=== PATIENT | female | born 2000 | race Caucasian/White ===

== ENCOUNTER 2019-11-30 01:03 | Emergency (ER) | payer OTHER, SELFPAY ==
[2019-11-30 01:10] VITALS: BP 129/61; PULSE 98; RESP 16; TEMP 36.5; O2SAT 100
--- NOTE | 2019-11-30 02:13 | ED.EAR ---
HPI - Ear Problem General Chief complaint: Ear Stated complaint: ear infection Time Seen by Provider: 11/30/19 01:29 History of Present Illness HPI Narrative: Patient is a 19-year-old female who presents the ER with right ear pain. Began earlier in the day but much worse this evening. No change in hearing. Radiates into her jaw. Has not been in any swimming pools. No known sick contacts. Denies any runny nose/sore throat/productive cough. Does not believe anything stuck in her ear. Related Data Allergies Allergy/AdvReac Type Severity Reaction Status Date / Time No Known Allergies Allergy Unverified 11/30/19 01:04 Review of Systems Constitutional: Constitutional: Denies chills and Denies fever(s) ENT: Denies nasal congestion and Denies sore throat Comments: Right ear pain Respiratory: Respiratory: Denies cough and Denies dyspnea PMFSH Past Medical History Medical History (Updated 11/30/19 @ 02:15 by Ulysses Sellers MD) Asthma Eczema Tonsillitis Surgical History Surgical History (Updated 04/27/19 @ 02:46 by Anita Nicholas) Hx of tonsillectomy Social History Social History (Updated 04/27/19 @ 02:46 by Anita Nicholas) Tobacco type: cigarettes Exam Narrative: Exam Narrative: GENERAL: Well-appearing, well-nourished, and in no acute distress. HEAD: Normocephalic, atraumatic. ENT: Mucous membranes moist. Tympanic membrane on the right side is bulging and erythematous. Ear canal normal appearance. Normal left ear exam. NEURO: Alert and oriented x3. PSYCH: Normal mood and affect. Course Course Emergency Course: Patient is . Can receive Augmentin. Discharge home. Vital Signs Vital signs: Vital Signs Temperature 97.7 F 11/30/19 01:10 Pulse Rate 98 11/30/19 01:10 Respiratory Rate 16 11/30/19 01:10 Blood Pressure 129/61 11/30/19 01:10 Pulse Oximetry 100 11/30/19 01:10 Temperature 97.7 F 11/30/19 01:10 Pulse Rate 98 11/30/19 01:10 Respiratory Rate 16 11/30/19 01:10 Blood Pressure 129/61 11/30/19 01:10 Pulse Oximetry 100 11/30/19 01:10 Medical Decision Making Vital Signs Vital Signs: Vital Signs Temperature 97.7 F 11/30/19 01:10 Pulse Rate 98 11/30/19 01:10 Respiratory Rate 16 11/30/19 01:10 Blood Pressure 129/61 11/30/19 01:10 Pulse Oximetry 100 11/30/19 01:10 Temperature 97.7 F 11/30/19 01:10 Pulse Rate 98 11/30/19 01:10 Respiratory Rate 16 11/30/19 01:10 Blood Pressure 129/61 11/30/19 01:10 Pulse Oximetry 100 11/30/19 01:10 Discharge Plan Discharge Clinical Impression: Otitis media Patient Disposition: Home, Self-Care Condition: Stable Instructions: Antibiotic Form, Ear Infection (ED) Prescriptions: New amoxicillin-pot clavulanate [Augmentin] 875-125 mg tablet 1 tablet PO Q12H Qty: 20 RF: 0 hydrocodone-acetaminophen 5-325 mg tablet 1 tablet PO Q6H PRN (Reason: pain) Qty: 20 RF: 0 Follow-up/Referrals: Alex,EFFIE Alberto [Primary Care Provider] - 1 Week
[2019-11-30 02:25] VITALS: BP 125/68; PULSE 85; RESP 16; O2SAT 100
== END 2019-11-30 02:25 | disposition home or self-care (01) ==
PROVIDERS: Emergency Provider Emergency Medicine; PCP Nurse Practitioner Family
DX: O99.89 Other specified diseases and conditions complicating pregnancy, childbirth and the puerperium (principal); H66.91 Otitis media, unspecified, right ear; O99.511 Diseases of the respiratory system complicating pregnancy, first trimester; J45.909 Unspecified asthma, uncomplicated; O99.331 Smoking (tobacco) complicating pregnancy, first trimester; F17.210 Nicotine dependence, cigarettes, uncomplicated; Z3A.01 Less than 8 weeks gestation of pregnancy
CPT/HCPCS: 99283

== ENCOUNTER 2020-02-25 14:05 | Outpatient (CLI) | payer OTHER, SELFPAY ==
--- NOTE | ~2020-02-25 | US_ITS ---
US OB /maternal detail DATE: 02/25/2020 14:50 INDICATION: anatomy assessment. Routine anterior needle care. TECHNIQUE: Real-time imaging and Doppler analysis COMPARISON: None FINDINGS: Live millard intrauterine gestation, the fetus in breech presentation, longitudinal lie. heart rate of 174 bpm. No cerebral ventriculomegaly. The cerebellum appears normal. Normal nuchal fold. Normal c isterna magna. The spine appears unremarkable on transverse and longitudinal views. The diaphragm is int act. 4 chamber heart. The kidneys are unremarkable. No hydronephrosis. Three-vessel umbilical cord with normal insertion at abdominal wall. Fluid is demonstrated in the sto mach and urinary bladder. female external genitalia. Three-vessel umbilical cord with normal appearing insertion at abdominal wall. Biparietal diameter 4.50 cm; 19 weeks 4 days Head circumference 16.52 cm; 19 weeks 2 days Abdominal circumference 13.28 cm; 18 weeks 5 days Femur length 2.71 cm; 19 weeks 2 days Composite age by Hadlock formula is 19 weeks +/- 1 week 2 days; [place] by ultrasound is 07/21/2020 compar ed to 07/20/2020 by LMP Estimated weight is 249.7 +/- 37 g. HC/AC 1.24, within normal range 1.09-1.26 Femur length/head circumference 16.39, within normal range of 16.10-18.30 Normal amount of amniotic fluid. Posterior placenta. IMPRESSION: Normal anatomy screen Estimated gestational age is 19 weeks +/- 1 week 2 days; ELHAM by ultrasound is 07/21/2020 Reviewed, dictated and finalized at [facility] Reviewed, dictated and finalized at [facility].
== END 2020-02-25 14:06 | disposition home or self-care (01) ==
LOC: ANHIMG 14:07
PROVIDERS: PCP Nurse Practitioner Family; Visit Provider Obstetrics & Gynecology
DX: Z34.02 Encounter for supervision of normal first pregnancy, second trimester (principal); Z3A.19 19 weeks gestation of pregnancy
CPT/HCPCS: 76805

== ENCOUNTER 2020-03-04 10:04 | Outpatient (CLI) | payer OTHER, SELFPAY ==
[2020-03-04 10:35] LABS: Hemoglobin 11.8 g/dL (12.0-15.0); Mean Corpuscular HGB Conc 32.8 g/dl (32-36); Mean Corpuscular Hemoglobin 25.2 pg (26-34); Mean Corpuscular Volume 76.9 fl (80-100); Mean Platelet Volume 9.9 fl (7.4-10.4); Platelet Count Result 396 k/mm3 (150-375); Red Blood Count 4.68 M/mm3 (4.2-5.4); Red Cell Distribution Width 17.7 % (11.5-14.5); White Blood Count 13.1 K/mm3 (4.5-10.0)
[2020-03-04 11:26] LABS: HIV 1/2 Ab P24 Ag Result Negative (Negative)
[2020-03-04 11:43] LABS: Hepatitis B Surface Antigen Negative (Negative)
[2020-03-06 07:20] LABS: Rapid Plasma Reagin Non-Reactive (NonReactive)
[2020-03-07 16:21] LABS: CMV IgG Antibody <0.60 U/mL (<0.60)
[2020-03-09 16:08] LABS: Rubeola Measles IgG >300.00 AU/mL (>16.49)
== END 2020-03-04 10:05 | disposition home or self-care (01) ==
LOC: ANHLAB 10:07
PROVIDERS: PCP Nurse Practitioner Family; Visit Provider Obstetrics & Gynecology
DX: N92.5 Other specified irregular menstruation (principal)
CPT/HCPCS: 36415; 84702; 85027; 86592; 86644; 86703; 86747; 86765; 86787; 86900; 86901; 87077; 87086; 87088; 87186; 87340; G0432

== ENCOUNTER 2020-03-27 17:46 | Observation (INO) | payer OTHER, SELFPAY ==
[2020-03-27 18:20] VITALS: TEMP 36.5
[2020-03-27 18:24] VITALS: BP 112/52; PULSE 95
[2020-03-27 18:31] VITALS: BP 122/70; PULSE 95
[2020-03-27 18:46] VITALS: BP 110/98; PULSE 88
[2020-03-27 18:56] VITALS: BMI 43.5
--- NOTE | 2020-03-27 18:58 | OBADM ---
This patient, Juhi Gaston, admitted to the OB room OB Post 116 for observation. Patient/family oriented to hospital policies and general routines including ID bracelet, bed and alarms, visiting hours, pain management, procedures, bathroom and other care routines, personal items, smoking policy, room service/diet, and visiting hours. Patient/Family are encouraged to report perceived risks to care and to ask questions if they do not understand what they are told or what they should do.
[2020-03-27 19:01] VITALS: BP 110/65; PULSE 91
[2020-03-27 20:05] LABS: Add Urine Microscopic? YES; Appearance Urine Cloudy (Clear); Bilirubin Urine Negative (Negative); Blood Urine 2+ (Negative); Color Urine Yellow (Yellow); Glucose Urine UA Negative (Negative); Ketones Urine Negative (Negative); Leukocyte Esterase Ur Negative LEU/UL (NEGATIVE); Nitrate Urine Negative (Negative); Protein Urine Negative (Negative); Specific Grav Ur 1.014 (1.001-1.035); Urobilinogen Urine Negative mg/dL (<2.0)
--- NOTE | 2020-03-30 16:28 | P.PNOB_ITS ---
OB - Triage/Final Diagnosis Evaluation Laboratory results: Laboratory Tests 03/27/20 18:33 Urine Color Yellow Urine Appearance Cloudy H Urine pH 7.0 Ur Specific [place] 1.014 Urine Protein Negative Urine Glucose (UA) Negative Urine Ketones Negative Ur Blood (Man) 2+ H Urine Nitrate Negative Urine Bilirubin Negative Urine Urobilinogen Negative Ur Leukocyte Esterase Negative Final Diagnosis (1) Nausea and vomiting during : Code(s): O21.9 - Vomiting of , unspecified Status: Acute
== END 2020-03-27 19:40 | disposition home or self-care (01) ==
PROVIDERS: Admitting Provider Obstetrics & Gynecology; PCP Nurse Practitioner Family; Visit Provider Obstetrics & Gynecology
DX: O21.2 Late vomiting of pregnancy (principal); Z3A.23 23 weeks gestation of pregnancy; Z79.899 Other long term (current) drug therapy
CPT/HCPCS: 81001; 87086; G0378; G0379

== ENCOUNTER 2020-07-06 15:02 | Outpatient (CLI) | payer OTHER, SELFPAY ==
[2020-07-06 15:43] VITALS: BP 130/77; PULSE 100
--- NOTE | 2020-07-06 16:23 | PC.NURSE ---
Pt came in for leaking fluid, rom plus negative gave order to discharge pt home
--- NOTE | 2020-07-07 09:27 | PM.OBTRLD ---
OB - Triage/Final Diagnosis Evaluation Vital signs: Vital Signs - 24 hr 07/06/20 15:43 Pulse Rate 100 Blood Pressure [Left Arm] 130/77 Final Diagnosis (1) False labor: Code(s): O47.9 - False labor, unspecified Status: Acute
== END 2020-07-06 16:00 | disposition home or self-care (01) ==
LOC: ANHOBOP 16:03
PROVIDERS: PCP Nurse Practitioner Family; Visit Provider Obstetrics & Gynecology
DX: O42.90 Premature rupture of membranes, unspecified as to length of time between rupture and onset of labor, unspecified weeks of gestation (principal); Z3A.00 Weeks of gestation of pregnancy not specified
CPT/HCPCS: 59025; 84112

== ENCOUNTER 2020-07-14 | Inpatient (IN) | payer OTHER, SELFPAY ==
[2020-07-14] VITALS (153 sets, daily range): BP systolic 79–154; BP diastolic 40–132; PULSE 74–176; RESP 15–20; TEMP 36.2–36.9; O2SAT 93–100; BMI 46.9
--- NOTE | 2020-07-14 | LDADM ---
This patient, Juhi Gaston, was admitted to Labor/Delivery/Recovery 109 on 07/14/20 at 00:00. Plans for labor, pain management and were discussed with patient. Patient/family oriented to hospital policies and general routines including ID bracelet, bed and alarms, visiting hours, pain management, procedures, bathroom and other care routines, personal items, smoking policy, room service/diet and guest tray routines, infant security routines, and visiting hours. Patient/Family are encouraged to report perceived risks to care and to ask questions if they do not understand what they are told or what they should do. See OBIX for further documentation.
[2020-07-14 00:38] LABS: Basophils Percent Auto 0.2 % (0.2-1.2); Eosinophils Absolute Auto 0.3 K/mm3 (0-0.3); Eosinophils Percent Auto 2.4 % (0-4.4); Hematocrit 34.7 % (37.0-47.0); Hemoglobin 11.4 g/dL (12.0-15.0); Immature Granulocyte Absolute 0.06 K/mm3 (0.00-0.031); Immature Granulocyte Percent A 0.4 % (0-0.5); Lymphocytes Absolute Auto 2.97 K/mm3 (0.9-3.2); Lymphocytes Percent Auto 21.3 % (18.3-44.2); Mean Corpuscular HGB Conc 32.9 g/dl (32-36); Mean Corpuscular Hemoglobin 26.3 pg (26-34); Mean Corpuscular Volume 80.1 fl (80-100); Mean Platelet Volume 10.4 fl (7.4-10.4); Monocytes Absolute Auto 0.7 K/mm3 (0.1-0.6); Monocytes Percent Auto 5.2 % (2.6-8.5); Neutrophils Absolute Auto 9.8 K/mm3 (1.3-6.7); Neutrophils Percent Auto 70.5 % (45.5-73.1); Platelet Count Result 348 k/mm3 (150-375); Red Blood Count 4.33 M/mm3 (4.2-5.4); Red Cell Distribution Width 17.6 % (11.5-14.5)
[2020-07-14] MEDS: LACTATED RINGERS 1,000 ML 125 ML IV CONT ×2 (00:47→09:19)
[2020-07-14] MEDS: OXYTOCIN 30 UNITS/NS 500 ML 30 UNITS/500 ML BAG IV CONT (00:48)
[2020-07-14 01:59] LABS: HIV 1/2 Ab P24 Ag Result Negative (Negative)
--- NOTE | 2020-07-14 07:37 | WPDANESEPP ---
Anes - Eval Pre Procedure Procedure: labor pain Date/Time: 07/14/20 07:37 Preop Diagnosis: labor pain Pre Op Diagnosis: IOL Patient Data Age: 20 Gender: F Height: 5 ft 1 in Weight: 112.7 kg Last Vital Signs Temp 36.2 C L 07/14/20 07:07 Pulse 101 H 07/14/20 07:31 Resp 18 07/14/20 04:09 BP 118/79 07/14/20 07:31 Allergies Allergy/AdvReac Type Severity Reaction Status Date / Time No Known Allergies Allergy Unverified 11/30/19 01:04 Home Medications Medication Instructions Recorded Confirmed Type PNV cmb#95-ferrous fumarate-FA 1 tablet PO DAILY 03/27/20 07/14/20 History [] buspirone 10 mg PO BID 03/27/20 07/14/20 History sertraline [Zoloft] 50 mg PO DAILY 07/13/20 07/14/20 History Laboratory Tests 07/14/20 07/14/20 07/14/20 00:29 00:29 00:29 WBC 14.0 K/mm3 H K/mm3 (4.5-10.0) RBC 4.33 M/mm3 M/mm3 (4.2-5.4) Hgb 11.4 g/dL L g/dL (12.0-15.0) Hct 34.7 % L % (37.0-47.0) MCV 80.1 fl fl (80-100) MCH 26.3 pg pg (26-34) MCHC 32.9 g/dl g/dl (32-36) RDW 17.6 % H % (11.5-14.5) Plt Count 348 k/mm3 k/mm3 (150-375) MPV 10.4 fl fl (7.4-10.4) Immature Gran % (Auto) 0.4 % % (0-0.5) Neut % (Auto) 70.5 % % (45.5-73.1) Lymph % (Auto) 21.3 % % (18.3-44.2) [place] % (Auto) 5.2 % % (2.6-8.5) Eos % (Auto) 2.4 % % (0-4.4) Baso % (Auto) 0.2 % % (0.2-1.2) Lymph # (Auto) 2.97 K/mm3 K/mm3 (0.9-3.2) [place] # (Auto) 0.7 K/mm3 H K/mm3 (0.1-0.6) Eos # (Auto) 0.3 K/mm3 K/mm3 (0-0.3) Baso # (Auto) 0.0 K/mm3 K/mm3 (0.0-0.1) Abs Immat Gran (auto) 0.06 K/mm3 H K/mm3 (0.00-0.031) Absolute Neuts (auto) 9.8 K/mm3 H K/mm3 (1.3-6.7) Absolute Nucleated RBC 0.0 K/mm3 K/mm3 (0.0-0.012) Nucleated RBC % 0.0 % % (0.0-0.2) RPR Pending HIV 1&2 Ab/P24 Ag 4thGn Negative (Negative) Blood Type Antibody Screen 07/14/20 00:29 WBC RBC Hgb Hct MCV MCH MCHC RDW Plt Count MPV Immature Gran % (Auto) Neut % (Auto) Lymph % (Auto) [place] % (Auto) Eos % (Auto) Baso % (Auto) Lymph # (Auto) [place] # (Auto) Eos # (Auto) Baso # (Auto) Abs Immat Gran (auto) Absolute Neuts (auto) Absolute Nucleated RBC Nucleated RBC % RPR HIV 1&2 Ab/P24 Ag 4thGn Blood Type A Positive Antibody Screen Negative Patient hx anesthesia problems: none Family hx anesthesia problems: none [facility] Past Medical History Medical History (Updated 07/07/20 @ 09:28 by Nicolette Shoemaker DO) Asthma Eczema Tonsillitis Surgical History Surgical History (Updated 04/27/19 @ 02:46 by Anita Nicholas) Hx of tonsillectomy Family History Family History Other No pertinent past medical history Social History Social History (Updated 04/27/19 @ 02:46 by Anita Nicholas) Smoking status: Never smoker Tobacco type: cigarettes Substance use: never Gender identity (if verbalized by the patient): Female Spiritual care concerns: No Exam Day of Procedure 07/14/20 07:37
[2020-07-14] MEDS: busPIRone HCL 10 MG TABLET PO (08:38)
[2020-07-14] MEDS: SERTRALINE HCL 50 MG TABLET PO (08:38)
[2020-07-14 14:27] LABS: Rapid Plasma Reagin Non-Reactive (NonReactive)
[2020-07-14] MEDS: ONDANSETRON INJ 4 MG/2 ML VIAL IV PUSH (14:54)
--- NOTE | 2020-07-14 17:12 | WPDOBADMIT ---
Obstetrics - Admit Note Admission Note: record reviewed. No pertinent additions to the history and/or any subsequent changes in the physical findings that are not consistent with the expected course of the were found. Additions to the history and/or subsequent changes in the physical findings follow. None.
--- NOTE | 2020-07-14 17:13 | WPDHPUPDATE1 ---
History and Physical Update Update Date/Time: 07/14/20 17:13 History and Physical has been reviewed, including an updated exam of the patient. There are NO changes in the patient's condition. Risks, benefits, and alternatives have been discussed and questions answered. Patient agrees to proceed with procedure.
--- NOTE | 2020-07-14 17:13 | PM.OBPRVD ---
OB - Delivery Note Procedure Route of delivery: Episiotomy description: None Laceration Description: None Specimen: No Quantitative Blood Loss (ml): 300 Anesthesia type: Epidural Disposition: floor Narrative: Patient prepped and draped in usual manner for this procedure. Maternal expulsive efforts delivered vertex in a direct occiput posterior position. Nuchal cord was also noted and the baby was delivered without difficulty. Cord was clamped and cut and placenta delivered spontaneously. Uterus was well contracted. Cervix vagina and vulva were inspected with no lacerations or tears. At this point procedure was considered terminated immediate condition of mother and baby were both excellent. Baby Weeks of gestation at delivery: 39 Infant gender: Male Weight (pounds): 6 Weight (ounces): 6 score one minute: 8 score five minutes: 9
[2020-07-14] MEDS: OXYTOCIN 30 UNITS/NS 500 ML 30 UNITS/500 ML BAG 125 UNITS IV CONT (17:46)
[2020-07-14] MEDS: BENZOCAINE 20% AER SPR (*SP) 56 GM CAN 1 SPRAY TOPICAL (19:17)
[2020-07-14] MEDS: WITCH HAZEL 40 PADS 1 PAD TOPICAL (19:17)
[2020-07-14] MEDS: IBUPROFEN 600 MG TABLET PO (20:36)
[2020-07-15 05:50] LABS: Hematocrit 33.7 % (37.0-47.0); Hemoglobin 10.8 g/dL (12.0-15.0)
--- NOTE | 2020-07-15 09:07 | PM.OBDSVD ---
DS: Admitting Diagnosis Admitting Diagnosis Admitting Diagnosis: OB - DS: Summary OB Procedures : None OB Procedures Intrapartum: Spontaneous Vag Delivery OB Procedures: : None Time Spent with Patient Time attestation: Total time spent providing and/or coordinating discharge services: DS: Data Data Completed and Pending Labs on day of discharge: Labs from last 24 hours 07/15/20 07/14/20 04:47 00:29 Hgb 10.8 L Hct 33.7 L RPR Non-reactive Discharge Plan Discharge Discharging Clinician: Tye Pelayo Patient Disposition: Home, Self-Care Activity: as tolerated Diet: as tolerated Patient Instructions: Antibiotic Form Stand Alone Forms: General Discharge Information Follow-up/Referrals: Tye Pelayo MD [Physician] - 3 Weeks Discharge Medications: New ibuprofen 600 mg Tablet 600 mg PO Q6H PRN (Reason: Cramping) Qty: 30 RF: 0 Continued sertraline [Zoloft] 50 mg Tablet 50 mg PO DAILY RF: 0 buspirone 10 mg Tablet 10 mg PO BID RF: 0 PNV cmb#95-ferrous fumarate-FA [] 28 mg iron- 800 mcg Tablet 1 tablet PO DAILY RF: 0 Date of admission: 07/14/20 00:00 Primary Care Provider: MayaDolly Admitting Provider: Tye Pelayo Attending physician on admission: Tye Pelayo Condition: Stable
[2020-07-15] MEDS: SERTRALINE HCL 50 MG TABLET PO (09:37)
[2020-07-15 09:38] VITALS: BP 125/68; PULSE 111; RESP 16; TEMP 36.7; O2SAT 99
[2020-07-15] MEDS: MULTIVIT/MIN/PREN/FOL AC/IRON TABLET 1 TAB PO (09:38)
[2020-07-15] MEDS: DOCUSATE SODIUM 100 MG CAPSULE PO (09:38)
[2020-07-15] MEDS: busPIRone HCL 10 MG TABLET PO (09:38)
--- NOTE | 2020-07-15 09:52 | WPDANLDPN2 ---
Anes-Prog Note L&D Date/Time: 07/15/20 09:52 Comfortable throughout: labor and delivery Neuraxial method: epidural Epidural/Spinal procedure site: clean & non-tender Neuro status: Neuro function grossly intact. Cardiovascular status: normal Respiratory status: normal Airway patency: baseline Mental status: baseline Post-Op hydration status: normal Vital Signs: Last Vital Signs Temp 36.4 C 07/14/20 20:15 Pulse 92 07/14/20 20:15 Resp 15 07/14/20 20:15 BP 117/56 L 07/14/20 20:15 Pulse Ox 98 07/14/20 20:15 Pain score (VAS): 07/02 I/O: Intake & Output 07/14/20 07/15/20 07/15/20 23:59 07:59 15:59 Intake Total 1200 Output Total 300 Balance 900 Post-procedural complaints: none Patient feedback: Patient satisfied with anesthetic care.
[2020-07-15] MEDS: IBUPROFEN 600 MG TABLET PO (18:00)
[2020-07-15 18:43] VITALS: BP 118/89; PULSE 83; RESP 16; TEMP 36.3; O2SAT 98
[2020-07-16] MEDS: MULTIVIT/MIN/PREN/FOL AC/IRON TABLET 1 TAB PO (09:34)
[2020-07-16 09:35] VITALS: BP 116/65; PULSE 88; RESP 16; TEMP 36.3; O2SAT 99
[2020-07-16] MEDS: IBUPROFEN 600 MG TABLET PO ×2 (09:35→17:23)
[2020-07-16] MEDS: SERTRALINE HCL 50 MG TABLET PO (09:35)
[2020-07-16] MEDS: busPIRone HCL 10 MG TABLET PO (09:35)
--- NOTE | 2020-07-16 17:36 | PC.NURSE ---
1200 Patient viewed the discharge video Mother & Baby Care, The First Two Weeks . Patient was given the opportunity and encouraged to ask questions. Patient verbalized understanding of information shared and has been given the mother/baby guide for home reference.
--- NOTE | 2020-07-19 17:26 | PM.OBDSVD ---
DS: Admitting Diagnosis Admitting Diagnosis Admitting Diagnosis: OB - DS: Summary OB Procedures : None OB Procedures Intrapartum: Spontaneous Vag Delivery OB Procedures: : None Time Spent with Patient Time attestation: Total time spent providing and/or coordinating discharge services: Discharge Plan Discharge Discharging Clinician: Tye Pelayo Patient Disposition: Home, Self-Care Activity: as tolerated Diet: as tolerated Discharge Instructions: Education: Mom and Baby Guide Given to: Mother Follow-Up: Call your delivering provider's office for an appointment to be seen in: 3 Weeks Mom and baby should come to the [facility] for the follow-up appointment. Appointment Date/Time: TBD Call [phone] if you are unable to keep your appointment time. BREAST CARE: * Wear a snug supportive bra. * For engorgement discomfort: Breast Feeding: * Apply warm moist washcloths * Express milk as needed to relieve engorgement * Wear loose clothing Bottle Feeding: * May apply ice packs * For sore nipples: * Identify correct latch-on * Apply warm moist washcloths before and after nursing * Air dry nipples after nursing * May apply Lansinoh cream to nipples EPISIOTOMY/PERINEAL CARE: * Until bleeding stops, use your deon bottle after urinating * Change your pad frequently throughout the day * You may take sitz baths several times a day (fill your bathtub with warm water and soak for 20 minutes.) Do NOT bathe in the water * No tub baths until seen by your physician - You may shower ACTIVITY: * Rest as much as possible. * Do not exercise or lift anything heavier than your baby (such as laundry or other children.) * Avoid stairs or driving as much as possible. * Do not put anything into the vagina. No douching, tampons, or sexual activity until seen by physician. NOTIFY PHYSICIAN IF YOU HAVE ANY QUESTIONS OR IF ANY OF THE FOLLOWING SYMPTOMS OCCUR: * If your episiotomy or incision becomes red, swollen, or more painful than what you have experienced in the hospital. * If your vaginal bleeding becomes foul smelling. * If your vaginal bleeding becomes more heavy than a period or if your bleeding changes from pink to bright red. However, you may pass an occasional walnut-sized clot once or twice for the first week . * If you experience a sharp, shooting pain in you calves. * If you discover a hard, reddened area on your breast or if you experience flu-like symptoms. DIET: * Eat regular, well-balanced meals. * Drink plenty of fluids daily. If , drink to thirst. Follow-up/Referrals: Tye Pelayo MD [Physician] - 3 Weeks Discharge Medications: New ibuprofen 600 mg Tablet 600 mg PO Q6H PRN (Reason: Cramping) Qty: 30 RF: 0 Continued sertraline [Zoloft] 50 mg Tablet 50 mg PO DAILY RF: 0 buspirone 10 mg Tablet 10 mg PO BID RF: 0 PNV cmb#95-ferrous fumarate-FA [] 28 mg iron- 800 mcg Tablet 1 tablet PO DAILY RF: 0 Date of admission: 07/14/20 00:00 Primary Care Provider: AlexDolly Admitting Provider: Tye Pelayo Attending physician on admission: Tye Pelayo Condition: Stable
== END 2020-07-16 17:30 | disposition home or self-care (01) | DRG 560 ==
LOC: ANHLDR 00:04 → ANHOB2 20:26
PROVIDERS: Admitting Provider Obstetrics & Gynecology; PCP Nurse Practitioner Family; Visit Provider Obstetrics & Gynecology
DX: O69.81X0 Labor and delivery complicated by cord around neck, without compression, not applicable or unspecified (principal); O76 Abnormality in fetal heart rate and rhythm complicating labor and delivery; Z3A.39 39 weeks gestation of pregnancy; Z37.0 Single live birth
CPT/HCPCS: 36415; 85014; 85018; 85025; 86592; 86703; 86850; 86900; 86901; A9270; G0432; J2405; J2590; J2795; J7120

== ENCOUNTER 2021-03-24 12:19 | Outpatient (CLI) | payer OTHER, SELFPAY ==
[2021-03-24 13:36] LABS: Beta HCG Quantitative < 2.39 mIU/ML
== END 2021-03-24 12:20 | disposition home or self-care (01) ==
PROVIDERS: PCP Nurse Practitioner Family; Visit Provider Obstetrics & Gynecology
DX: N92.6 Irregular menstruation, unspecified (principal)
CPT/HCPCS: 36415; 84702

== ENCOUNTER 2022-08-05 18:05 | Emergency (ER) | payer OTHER, SELFPAY ==
[2022-08-05 18:09] VITALS: BP 130/93; PULSE 102; RESP 16; TEMP 36.9; O2SAT 99
--- NOTE | 2022-08-05 18:15 | ED.GENADULT ---
HPI - General Adult General Chief complaint: Skin/Abscess/Foreign Body Stated complaint: Neck Pain/Bumps behind Ears Time Seen by Provider: 08/05/22 18:15 Source: patient, RN notes reviewed and old records reviewed Mode of arrival: ambulatory Limitations: no limitations History of Present Illness HPI narrative: 22-year-old female presents to the [facility] with complaints pain and bumps behind her ears. Also reports neck pain in that area. No midline tenderness. No numbness or tingling. Denies any fevers. No new creams or ointments lotions or detergents. Onset (ago): day(s) (3) Related Data Home Medications Medication Instructions Recorded Confirmed albuterol sulfate 90 mcg/actuation 2 puff inhalation DIRECTED 08/05/22 08/05/22 aerosol inhaler etonogestrel 0.12 mg-ethinyl 1 vag ring vaginal DIRECTED 08/05/22 08/05/22 estradiol 0.015 mg/24 hr vaginal ring (MatthewuRyng) Allergies Allergy/AdvReac Type Severity Reaction Status Date / Time No Known Allergies Allergy Verified 08/05/22 18:14 Review of Systems Review of Systems: All systems reviewed & are unremarkable except as noted in HPI and below Constitutional: Constitutional: Reports no additional constitutional complaints Eyes: Eyes: Reports no additional eye complaints ENT: Reports system reviewed and no additional complaints, except as documented Cardiovascular: Cardiovascular: Reports no additional cardiovascular complaints, Denies chest pain and Denies dyspnea Respiratory: Respiratory: Reports no additional respiratory complaints, Denies chest congestion, Denies cough and Denies dyspnea Gastrointestinal: Gastrointestinal: Reports no additional gastrointestinal complaints, Denies abdominal pain, Denies nausea and Denies vomiting Musculoskeletal: Musculoskeletal: Reports no additional musculoskeletal complaints Integumentary/Breasts: Skin/Breast: Reports as per HPI Neurologic: Reports system reviewed and no additional complaints, except as documented Psychiatric: Psychiatric: Reports no additional psychiatric complaints Allergic/Immunologic: Allergic/Immunologic: Reports no additional allergic/immunologic complaints [facility] Past Medical History Medical History Asthma Eczema Tonsillitis Surgical History Surgical History Hx of tonsillectomy Family History Family History Other No pertinent past medical history Social History Social History Smoking status: Never smoker Tobacco type: cigarettes Substance use: never Gender identity (if verbalized by the patient): Female Spiritual care concerns: No Comments At the time of my signature, I reviewed and agree with the nursing past medical, surgical, social, and family history. There is no relevant family history pertinent to the patient complaint. Exam Const: General: cooperative, healthy appearing, comfortable, no acute distress, well developed, alert and well nourished Nutritional Appearance: well nourished and obese Orientation/consciousness: patient oriented x3 Limitations: no limitations HENMT: Head: normal to inspection Ears: hearing grossly normal bilaterally and external ears normal Face/Nose/Sinus: Normal external nose present, Normal nares present, Normal nasal mucous membranes and turbinates present and normal facial exam Face and sinus: normal facial exam Mouth: Yes Normal oral and palatal mucosa present, Yes lip normal and Yes moist mucous membranes Throat: posterior oropharynx normal and uvula midline Eyes: General: appearance normal, both eyes and all related structures Alignment and Position: alignment normal Periorbital: periorbital findings normal Conjunctivae: conjunctivae normal Pupils: Equal, round and reactive pupils present EOM
== END 2022-08-05 18:28 | disposition home or self-care (01) ==
PROVIDERS: Emergency Provider Nurse Practitioner; PCP Nurse Practitioner Family
DX: L30.9 Dermatitis, unspecified (principal); J45.909 Unspecified asthma, uncomplicated
CPT/HCPCS: 99213; G0463

== ENCOUNTER 2022-08-07 18:23 | Emergency (ER) | payer OTHER, SELFPAY ==
[2022-08-07 18:34] VITALS: BP 112/74; PULSE 87; RESP 20; TEMP 36.3; O2SAT 99
--- NOTE | 2022-08-07 20:59 | ED.GENADULT ---
HPI - General Adult General Chief complaint: Ear Stated complaint: rash behind ear Time Seen by Provider: 08/07/22 20:40 History of Present Illness HPI narrative: This is a 22-year-old female presenting to ED with 2 days of rash behind her ear. Patient has several bumps behind her ear that have been spreading. She has seen in urgent care and has been treated with a course of Keflex and steroid cream. Patient says that she is having some burning and itching. She has taken Motrin which has helped although she has not taken any today. She denies fever, chills, chest pain, difficulty breathing, abdominal pain or any other complaints. patient has a history of flea bites, and bedbug bites. She has significant animal exposure. The goal of today's visit is symptom control. Related Data Home Medications Medication Instructions Recorded Confirmed albuterol sulfate 90 mcg/actuation 2 puff inhalation DIRECTED 08/05/22 08/05/22 aerosol inhaler etonogestrel 0.12 mg-ethinyl 1 vag ring vaginal DIRECTED 08/05/22 08/05/22 estradiol 0.015 mg/24 hr vaginal ring (EluRyng) Allergies Allergy/AdvReac Type Severity Reaction Status Date / Time No Known Allergies Allergy Verified 08/07/22 18:37 [facility] Past Medical History Medical History Asthma Eczema Tonsillitis Surgical History Surgical History Hx of tonsillectomy Family History Family History Other No pertinent past medical history Social History Social History Smoking status: Never smoker Tobacco type: cigarettes Substance use: never Gender identity (if verbalized by the patient): Female Spiritual care concerns: No Exam Narrative: APPEARANCE: No apparent distress. Head: atraumatic. EYES: EOMI, NOSE: Atraumatic NECK: Trachea midline RESPIRATORY: No increased rate of breathing CARDIOVASCULAR: RRR, ABDOMINAL: Non-distended MUSCULOSKELETAl: No obvious deformities NEURO: Alert. Moving 4/4 extremities SKIN:: Patient has several erythematous papules behind her right ear and in her hairline. No surrounding erythema or tenderness. No areas of purulence or fluctuance. PSYCHIATRIC: Normal affect Course Vital Signs Vital signs: Vital Signs Temperature 97.4 F L 08/07/22 18:34 Pulse Rate 87 08/07/22 18:34 Respiratory Rate 20 08/07/22 18:34 Blood Pressure 112/74 08/07/22 18:34 Pulse Oximetry 99 08/07/22 18:34 Oxygen Delivery Room Air 08/07/22 18:34 Temperature 97.4 F L 08/07/22 18:34 Pulse Rate 87 08/07/22 18:34 Respiratory Rate 20 08/07/22 18:34 Blood Pressure 112/74 08/07/22 18:34 Pulse Oximetry 99 08/07/22 18:34 Oxygen Delivery Room Air 08/07/22 18:34 Medical Decision Making [facility] Narrative Medical decision making narrative: -Presentation: 22-year-old female presenting with insect bites behind her right ear -DDX includes but is not limited to: fleas, scabies, bedbugs -Co-morbidities complicating care: multiple animals at home -Social determinants of health: is [id number] , has 4 children -External Chart Review: none -Hx from independent Sources: none -Discussion of Management/Consultants: none -Independent interpretation of studies: none Dx tests considered but not none ordered: -Procedures: none -Interventions: Motrin 800 mg, Tylenol 1000 mg -Shared decision making / Disposition: Discharge home with primary care follow-up. Your bites are most consistent with flea bites. Please make sure you are animals or treated. If you develop worsening redness or pain at the site please return emergency department for evaluation. -RX Motrin, Tylenol, Benadryl Vital Signs Vital Signs: Vital Signs Temperature 97.4 F L 08/07/22 18:34 Pulse Rate 87
[2022-08-07] MEDS: IBUPROFEN 400 MG TABLET 800 MG PO (21:51)
[2022-08-07] MEDS: ACETAMINOPHEN 500 MG TABLET 1000 MG PO (21:52)
== END 2022-08-07 22:09 | disposition home or self-care (01) ==
PROVIDERS: Emergency Provider Emergency Medicine; PCP Nurse Practitioner Family
DX: S00.06XA Insect bite (nonvenomous) of scalp, initial encounter (principal); W57.XXXA Bitten or stung by nonvenomous insect and other nonvenomous arthropods, initial encounter; J45.909 Unspecified asthma, uncomplicated
CPT/HCPCS: 99283; A9270

== ENCOUNTER 2023-01-03 12:32 | Emergency (ER) | payer OTHER, SELFPAY ==
--- NOTE | 2023-01-03 | ECG_ITS ---
Measurements Intervals [place] Rate: 102 P: 36 SC: 144 QRS: 57 QRSD: 82 T: 8 QT: 320 QTc: 418 Interpretive Statements SINUS TACHYCARDIA MINIMAL Q WAVES- INFERIOR LEADS BORDERLINE ECG COMPARED TO ECG 01/03/2023 12:49:44 SINUS TACHYCARDIA NOW PRESENT Electronically Signed On 01-06-2023 12:59:59 CDT by Aaron Velazquez D.O.
[2023-01-03 12:41] VITALS: BP 130/104; PULSE 103; RESP 24; TEMP 36.8; O2SAT 100
--- NOTE | 2023-01-03 12:45 | ECG_ITS ---
Measurements Intervals [place] Rate: 197 P: [place]: 0 QRS: 64 QRSD: 81 T: -19 QT: 224 QTc: 406 Interpretive Statements SUPRAVENTRICULAR TACHYCARDIA ST-T WAVE ABNORMALITY IN ANT/INF LEADS- CONSIDER ISCHEMIA OR RATE RELATED ABNORMAL ECG NO PREVIOUS ECG AVAILABLE FOR COMPARISON Electronically Signed On 01-03-2023 13:07:31 CDT by Aaron Velazquez D.O.
--- NOTE | 2023-01-03 13:00 | ED.ARRPALP ---
HPI - Arrhythmia/Palpitations General Chief Complaint: Arrhythmia/Palpitations Stated Complaint: anxiety Time Seen by Provider: 01/03/23 12:59 History of Present Illness HPI narrative: 23-year-old female history of anxiety presented to the emergency department for evaluation of rapid heart rate that started approximately 930 this morning. Patient felt that this was triggered by anxiety. Patient also states that she did have a monster/coffee drink this morning. Patient has no prior history of SVT. Upon arrival to the emergency department patient's heart rate was approximately 200 and was in SVT Related Data Home Medications Medication Instructions Recorded Confirmed albuterol sulfate 90 mcg/actuation 2 puff inhalation DIRECTED 08/05/22 08/05/22 aerosol inhaler etonogestrel 0.12 mg-ethinyl 1 vag ring vaginal DIRECTED 08/05/22 08/05/22 estradiol 0.015 mg/24 hr vaginal ring (Elu[facility]yng) Allergies Allergy/AdvReac Type Severity Reaction Status Date / Time No Known Allergies Allergy Verified 01/03/23 13:25 Review of Systems Review of Systems: All systems reviewed & are unremarkable except as noted in HPI and below PMFSH Past Medical History Medical History Asthma Eczema Tonsillitis Surgical History Surgical History Hx of tonsillectomy Family History Family History Other No pertinent past medical history Social History Social History Smoking status: Never smoker Tobacco type: cigarettes Substance use: never Gender identity (if verbalized by the patient): Female Spiritual care concerns: No Exam Narrative: APPEARANCE: Well appearing, no pain, no distress, well-nourished. HEAD: normocephalic, atraumatic. EYES: PERRLA/EOMI, conjunctivae clear. NOSE: Normal no drainage EARS:TMS clear with good light reflex. THROAT: Pharynx clear, no exudate. NECK: Supple. No adenopathy, no masses. RESPIRATORY: Airway patent, respirations nonlabored. Clear to auscultation bilaterally, no rales, rhonchi, wheezing. CARDIOVASCULAR: SVT and then converted to normal sinus ABDOMINAL: Soft, nontender, nondistended, normal bowel sounds MUSCULOSKELETAL: Moves all extremities. Strength/ROM intact, No edema, No calf tenderness. NEURO: Alert. Cranial nerves II through XII intact. Good gait. Good coordination SKIN: Warm, dry. Normal Color Course Course Emergency Course: 23-year-old female presented the ED for evaluation of SVT. Patient was cardioverted using a modified Valsalva and did return back to normal sinus rhythm. Patient was treated with 1 L of normal saline. Patient is afebrile but did have a leukocytosis of 13.7. No significant abnormalities on her CMP. Patient did have some trace ketones and some red and white blood cells on her urine but with moderate squamous epithelial cells, patient denies any urinary symptoms, urine culture was ordered and patient was not started on antibiotics since she is not having any symptoms. Patient was encouraged of close follow-up with her primary care physician for additional outpatient cardiac testing including a Holter monitor. Patient and family were updated on the results of the work-up and plan for follow-up. All questions concerns were addressed. Vital Signs Vital signs: Vital Signs Temperature 98.2 F 01/03/23 12:41 Pulse Rate 103 H 01/03/23 12:41 Respiratory Rate 24 H 01/03/23 12:41 Blood Pressure 130/104 H 01/03/23 12:41 Pulse Oximetry 100 01/03/23 12:41 Oxygen Delivery Room Air 01/03/23 12:41 Temperature 98.2 F 01/03/23 12:41 Pulse Rate 90 01/03/23 15:42 Respiratory Rate 18 01/03/23 15:42 Blood Pressure 123/79 01/03/23 15:42 Pulse Oximetry 98 01/03/23 15:42 Oxygen Delivery Room Air 01/03/23 12:41
[2023-01-03 13:39] LABS: Basophils Absolute Auto 0.1 K/mm3 (0.0-0.1); Basophils Percent Auto 0.6 % (0.2-1.2); Eosinophils Absolute Auto 0.5 K/mm3 (0-0.3); Eosinophils Percent Auto 3.8 % (0-4.4); Hematocrit 38.5 % (37.0-47.0); Immature Granulocyte Absolute 0.09 K/mm3 (0.00-0.031); Immature Granulocyte Percent A 0.7 % (0-0.5); Lymphocytes Absolute Auto 3.39 K/mm3 (0.9-3.2); Lymphocytes Percent Auto 24.8 % (18.3-44.2); Mean Corpuscular HGB Conc 31.2 g/dl (32-36); Mean Corpuscular Hemoglobin 25.3 pg (26-34); Mean Corpuscular Volume 81.1 fl (80-100); Mean Platelet Volume 9.8 fl (7.4-10.4); Monocytes Absolute Auto 0.7 K/mm3 (0.1-0.6); Neutrophils Absolute Auto 8.9 K/mm3 (1.3-6.7); Neutrophils Percent Auto 65.1 % (45.5-73.1); Platelet Count Result 542 k/mm3 (150-375); Red Blood Count 4.75 M/mm3 (4.2-5.4); Red Cell Distribution Width 17.8 % (11.5-14.5); White Blood Count 13.7 K/mm3 (4.5-10.0)
[2023-01-03 13:39] LABS: Appearance Urine Cloudy (Clear); Bacteria Urine 2+ /hpf; Bilirubin Urine Negative (Negative); Blood Urine 3+ (Negative); Color Urine Dark Yellow (Yellow); Glucose Urine UA Negative (Negative); Hyaline Casts Urine Present /lpf; Ketones Urine Trace mg/dL (Negative); Leukocyte Esterase Ur 1+ LEU/UL (Negative); Nitrate Urine Negative (Negative); Non Pathogenic Casts >20; Protein Urine 1+ mg/dL (Negative); Specific Grav Ur 1.017 (1.001-1.035); Squamous Epithelial Cell Urine Moderate /hpf (Few)
[2023-01-03 13:43] LABS: Add Urine Microscopic? YES
[2023-01-03 13:54] LABS: Alanine Aminotransferase 34 U/L (6-35); Alkaline Phosphatase 76 U/L (38-126); Anion Gap 8 mmol/L (8-16); Aspartate Amino Transferase 48 U/L (14-36); Bilirubin,Total 0.5 mg/dL (0.2-1.3); Blood Urea Nitrogen 8 mg/dL (7-17); Calcium 9.1 mg/dL (8.4-10.2); Carbon Dioxide 22 mmol/L (22-30); Chloride 109 mmol/L (98-107); Estimated CRCL calculation 123 ml/min; Estimated Glomerular Filt Rate > 60; Glucose 98 mg/dL (65-110); Sodium 139 mmol/L (137-145)
[2023-01-03] MEDS: SODIUM CHLORIDE 0.9% IV 1,000 ML 999 ML IV CONT (13:54)
[2023-01-03 15:42] VITALS: BP 123/79; PULSE 90; RESP 18; O2SAT 98
== END 2023-01-03 15:43 | disposition home or self-care (01) ==
PROVIDERS: Emergency Provider Emergency Medicine; PCP Nurse Practitioner Family
DX: I47.1 Supraventricular tachycardia (principal); J45.909 Unspecified asthma, uncomplicated; R94.31 Abnormal electrocardiogram [ECG] [EKG]
CPT/HCPCS: 36415; 80053; 81001; 83735; 84443; 85025; 87086; 87088; 93005; 99283; J7030

== ENCOUNTER 2023-01-06 17:36 | Emergency (ER) | payer OTHER, SELFPAY ==
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
[2023-01-06 17:38] VITALS: BP 149/73; PULSE 103; RESP 18; TEMP 36.6; O2SAT 99
[2023-01-06 18:04] VITALS: BP 130/86; PULSE 100; RESP 18; O2SAT 98
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
== END 2023-01-06 18:52 | disposition home or self-care (01) ==
LOC: ANHED 18:49
PROVIDERS: Emergency Provider Physician Assistant; PCP Nurse Practitioner Family
DX: S16.1XXA Strain of muscle, fascia and tendon at neck level, initial encounter (principal); J45.909 Unspecified asthma, uncomplicated; V49.50XA Passenger injured in collision with unspecified motor vehicles in traffic accident, initial encounter
CPT/HCPCS: 70450; 72125; 99284

== ENCOUNTER 2025-05-28 10:04 | Outpatient (CLI) | payer OTHER, SELFPAY ==
[2025-05-28 10:59] LABS: Hemoglobin A1C 5.5 % (<5.7)
[2025-05-28 11:40] LABS: Thyroid Stimulating Hormone Reflex 1.470 uIU/mL (0.465-4.68)
[2025-06-01 03:08] LABS: Free Testosterone (Direct) <0.2 pg/mL (0.0-4.2)
== END 2025-05-28 10:05 | disposition home or self-care (01) ==
LOC: ANHLAB 10:08
PROVIDERS: Visit Provider Obstetrics & Gynecology
DX: R68.82 Decreased libido (principal)
CPT/HCPCS: 36415; 82627; 83036; 83498; 84402; 84403; 84443